=== PATIENT | female | born 1985 | race Caucasian/White ===

== ENCOUNTER 2017-12-29 20:22 | Emergency (ER) | payer OTHER ==
[~2017-12-29] VITALS: Ht 172.7 cm; Wt 81.7 kg
[2017-12-29] MEDS ORDERED: LAMICTAL100 MG PO (20:35)
[2017-12-29] MEDS ORDERED: MAGOX 400400 MG PO (20:35)
[2017-12-29] MEDS ORDERED: VISTARIL 25 MG25 M1 PO (20:36)
[2017-12-29] MEDS ORDERED: QUETIAPINE FUM100 MG PO (20:36)
[2017-12-29] MEDS ORDERED: VALIUM5 MG PO (20:42)
[2017-12-29 21:53] VITALS: BP 106/71
== END 2017-12-29 21:55 | disposition home or self-care (01) ==
LOC: ER 20:22
DX: M54.41 Lumbago with sciatica, right side (principal); F12.10 Cannabis abuse, uncomplicated; R21 Rash and other nonspecific skin eruption; F17.210 Nicotine dependence, cigarettes, uncomplicated; M32.9 Systemic lupus erythematosus, unspecified